=== PATIENT | male | born 2000 | race Caucasian/White ===

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

== ENCOUNTER 2023-05-05 21:09 | Emergency (ER) | payer OTHER ==
[~2023-05-05] VITALS: Ht 195.6 cm; Wt 95.2 kg
[2023-05-05 22:01] LABS: BASOPHILS ABSOLUTE AUTO 0.05 K/mm3 (0.00-0.23); BASOPHILS PERCENT AUTO 1 % (0-2); EOSINOPHILS ABSOLUTE AUTO 0.22 K/mm3 (0.00-0.68); EOSINOPHILS PERCENT AUTO 3 % (0-6); Hematocrit 44.2 % (37.0-53.0); Hemoglobin 15.1 g/dL (13.5-17.5); IMMATURE GRAN ABSOLUTE AUTO 0.03 K/mm3 (0.00-0.10); IMMATURE GRAN PERCENT AUTO 0 % (0-1); LYMPHOCYTES ABSOLUTE AUTO 2.79 K/mm3 (0.84-5.20); LYMPHOCYTES PERCENT AUTO 33 % (21-46); MONOCYTES ABSOLUTE AUTO 0.61 K/mm3 (0.16-1.47); MONOCYTES PERCENT AUTO 7 % (4-13); Mean Corpuscular HGB 28.9 pg (26.0-34.0); Mean Corpuscular HGB Conc 34.2 g/dL (31.5-36.5); Mean Corpuscular Volume 85 fL (80-100); Mean Platelet Volume 10.4 fL (9.1-12.4); NEUTROPHILS ABSOLUTE AUTO 4.89 K/mm3 (1.96-9.15); NEUTROPHILS PERCENT AUTO 57 % (41-73); Platelet Count 253 K/mm3 (150-400); RDW Coefficient Variation 11.9 % (11.7-14.2); Red Blood Cell Count 5.22 M/mm3 (4.30-5.90); White Blood Cell Count 8.59 K/mm3 (4.00-11.30)
[2023-05-05 22:27] LABS: Albumin, Blood 4.3 g/dL (3.4-5.0); Albumin/Globulin Ratio 1.3 (0.8-1.8); Bilirubin, Total 0.3 mg/dL (0.1-1.0); Bun/Creatinine Ratio 17.8 (12.0-20.0); Calcium, Blood 9.6 mg/dL (8.5-10.1); Creatinine, Blood 0.95 mg/dL (0.60-1.20); Globulin, Blood 3.4 g/dL (2.2-4.0); Potassium, Blood 3.8 mmol/L (3.5-5.5); Total Protein, Blood 7.7 g/dL (6.4-8.2)
[2023-05-05 23:38] LABS: Source, Urine Voided
[2023-05-05 23:42] LABS: Bilirubin, Urine Neg (Neg); Blood, Urine Neg (Neg); Glucose Qualitative, Urine Neg (Neg); Ketones, Urine Neg (Neg); Leukocyte Esterase, Urine Neg (Neg); Nitrite, Urine Neg (Neg); Protein, Urine Neg (Neg); Specific Gravity, Urine 1.015 (1.003-1.022); Urobilinogen, Urine 1+ (Normal); pH, Urine 6.5 (5.0-8.0)
[2023-05-05 23:47] LABS: Appearance, Urine Clear (Clear); Color, Urine Yellow (P-Yellow)
[2023-05-06] VITALS: BP 137/73
[2023-05-06] MEDS ORDERED: ALMACONE SUSPE355 ML PO (02:06)
[2023-05-06] MEDS ORDERED: FAMO20 PO (02:06)
== END 2023-05-06 02:14 | disposition home or self-care (01) ==
LOC: ER 21:09
PROVIDERS: Physician Assistant
DX: R10.12 Left upper quadrant pain (principal); R10.13 Epigastric pain; R11.2 Nausea with vomiting, unspecified; Z88.1 Allergy status to other antibiotic agents
CPT/HCPCS: 76705; 80053; 81003; 83690; 85025; 96374; 99284-25; J1885

== ENCOUNTER 2023-05-28 15:10 | Emergency (ER) | payer OTHER ==
[~2023-05-28] VITALS: Ht 198.1 cm; Wt 140.6 kg
[~2023-05-28 15:10] MED LIST changes: +ALMACONE SUSPE355 ML PO; +FAMO20 PO
[2023-05-28 15:19] VITALS: BP 146/88
[2023-05-28] MEDS ORDERED: ZOLOFT50 MG PO (16:12)
[2023-05-28] MEDS ORDERED: Adderall Xr 2020 MG PO (16:12)
== END 2023-05-28 16:26 | disposition home or self-care (01) ==
LOC: ER 15:10
DX: S61.211A Laceration without foreign body of left index finger without damage to nail, initial encounter (principal); W23.1XXA Caught, crushed, jammed, or pinched between stationary objects, initial encounter; Y92.89 Other specified places as the place of occurrence of the external cause; Y99.0 Civilian activity done for income or pay
CPT/HCPCS: 12001; 73140; 99283-25

== ENCOUNTER 2023-06-06 12:37 | Emergency (ER) | payer OTHER ==
[~2023-06-06] VITALS: Ht 193 cm; Wt 136.1 kg
[~2023-06-06 12:37] MED LIST changes: +ZOLOFT50 MG PO
[2023-06-06 12:41] VITALS: BP 153/76
== END 2023-06-06 12:50 | disposition home or self-care (01) ==
LOC: ER 12:37
DX: Z48.02 Encounter for removal of sutures (principal); Z88.0 Allergy status to penicillin
CPT/HCPCS: 99281

== ENCOUNTER 2024-11-27 19:46 | Emergency (ER) | payer OTHER ==
[~2024-11-27] VITALS: Ht 182.9 cm; Wt 140.6 kg
[2024-11-27 20:15] LABS: BASOPHILS ABSOLUTE AUTO 0.03 K/mm3 (0.00-0.23); BASOPHILS PERCENT AUTO 0 % (0-2); EOSINOPHILS ABSOLUTE AUTO 0.25 K/mm3 (0.00-0.68); EOSINOPHILS PERCENT AUTO 4 % (0-6); Hematocrit 45.5 % (37.0-53.0); Hemoglobin 15.5 g/dL (13.5-17.5); IMMATURE GRAN ABSOLUTE AUTO 0.02 K/mm3 (0.00-0.10); IMMATURE GRAN PERCENT AUTO 0 % (0-1); LYMPHOCYTES ABSOLUTE AUTO 1.68 K/mm3 (0.84-5.20); LYMPHOCYTES PERCENT AUTO 24 % (21-46); MONOCYTES ABSOLUTE AUTO 0.77 K/mm3 (0.16-1.47); MONOCYTES PERCENT AUTO 11 % (4-13); Mean Corpuscular HGB 28.7 pg (26.0-34.0); Mean Corpuscular HGB Conc 34.1 g/dL (31.5-36.5); Mean Corpuscular Volume 84 fL (80-100); Mean Platelet Volume 10.4 fL (9.1-12.4); NEUTROPHILS PERCENT AUTO 60 % (41-73); Platelet Count 247 K/mm3 (150-400); RDW Coefficient Variation 12.2 % (11.7-14.2); RDW Standard Deviation 36.8 fL (35.1-46.3); Red Blood Cell Count 5.41 M/mm3 (4.30-5.90); White Blood Cell Count 6.95 K/mm3 (4.00-11.30)
[2024-11-27 20:38] LABS: Albumin, Blood 4.7 g/dL (3.4-5.0); Albumin/Globulin Ratio 1.5 (0.8-1.8); Bilirubin, Total 0.4 mg/dL (0.1-1.0); Bun/Creatinine Ratio 18.5 (12.0-20.0); Calcium, Blood 9.9 mg/dL (8.5-10.1); Creatinine, Blood 0.81 mg/dL (0.60-1.20); Globulin, Blood 3.1 g/dL (2.2-4.0); Potassium, Blood 3.6 mmol/L (3.5-5.5); Total Protein, Blood 7.8 g/dL (6.4-8.2)
[2024-11-27 22:32] LABS: Source, Urine Clean Catch
[2024-11-27 22:44] LABS: Bilirubin, Urine Neg (Neg); Blood, Urine Neg (Neg); Glucose Qualitative, Urine Neg (Neg); Ketones, Urine Neg (Neg); Leukocyte Esterase, Urine Neg (Neg); Nitrite, Urine Neg (Neg); Protein, Urine 1+ (Neg); Specific Gravity, Urine 1.015 (1.003-1.022); Urobilinogen, Urine NORM (Normal)
[2024-11-27 22:48] LABS: Appearance, Urine Clear (Clear); Color, Urine Yellow (P-Yellow)
[2024-11-27] MEDS ORDERED: Ondansetron HCl 2 MG / ML 2ML Vial IV ONE (23:20)
[2024-11-27] MEDS ORDERED: NS 1,000 ML IV SCH (23:20)
[2024-11-27 23:52] LABS: Free Thyroxine 1.09 ng/dL (0.70-1.60)
[2024-11-27 23:54] LABS: Thyroid Stimulating Hormone 0.837 uIU/mL (0.360-4.800)
[2024-11-28] VITALS: BP 140/83
[2024-11-28] MEDS ORDERED: ONDA4ODT MM (02:34)
[2024-11-28] MEDS ORDERED: LOPE2C PO (02:34)
[2024-11-28] MEDS ORDERED: MIRALAX17 GM PO (02:34)
== END 2024-11-28 00:29 | disposition home or self-care (01) ==
LOC: ER 19:46
PROVIDERS: Student in an Organized Health Care Education/Training Program
DX: K58.2 Mixed irritable bowel syndrome (principal); Z88.0 Allergy status to penicillin
CPT/HCPCS: 74177; 80053; 83690; 84439; 84443; 84484; 85025; 86308; 93005; 93010; 96374-59; 99284-25; J2405; J7030; Q9967

== ENCOUNTER 2025-06-04 13:26 | Emergency (ER) | payer OTHER ==
[~2025-06-04] VITALS: Ht 195.6 cm; Wt 136.1 kg
[~2025-06-04 13:26] MED LIST changes: +LOPE2C PO; +MIRALAX17 GM PO
[2025-06-04 15:24] VITALS: BP 146/76
== END 2025-06-04 15:25 | disposition home or self-care (01) ==
LOC: ER 13:26
DX: S61.012A Laceration without foreign body of left thumb without damage to nail, initial encounter (principal); Z59.89 Other problems related to housing and economic circumstances; W45.8XXA Other foreign body or object entering through skin, initial encounter; Y99.0 Civilian activity done for income or pay
CPT/HCPCS: 73140; 99283-25